=== PATIENT | male | born 1960 | race Caucasian/White ===

== ENCOUNTER 2024-05-26 09:50 | Observation (INO) ==
[2024-05-26 12:25] LABS: BASOPHILS # (AUTO) 0.1 X10^3/uL (0.0-0.1); EOSINOPHILS # (AUTO) 0.1 x10^3/uL (0.0-0.2); HEMATOCRIT 53.5 % (42.0-54.0); HEMOGLOBIN 17.9 g/dL (13.5-18.0); LYMPHOCYTES # (AUTO) 1.5 X10^3/uL (1.3-2.9); LYMPHOCYTES % (AUTO) 26.3 % (21.0-51.0); MEAN CORPUSCULAR HEMOGLOBIN 33.1 pg (27.0-34.0); MEAN CORPUSCULAR HGB CONC 33.4 g/dL (33.0-35.0); MEAN CORPUSCULAR VOLUME 99.1 fL (80.0-100.0); MEAN PLATELET VOLUME 7.6 fL (7.4-11.0); MONOCYTES # (AUTO) 0.4 x10^3/uL (0.3-0.8); MONOCYTES % (AUTO) 6.7 % (0.0-13.0); NEUTROPHILS # (AUTO) 3.7 x10^3/uL (2.2-4.8); PLATELET COUNT 192 X10^3/uL (150.0-450.0); RED CELL DISTRIBUTION WIDTH 14.7 % (11.6-16.5); WHITE BLOOD COUNT 5.8 X10^3/uL (3.6-10.0)
[2024-05-26 12:38] LABS: ALANINE AMINOTRANSFERASE 26 Units/L (12-78); ALBUMIN 3.9 g/dL (3.4-5.0); ALKALINE PHOSPHATASE 147 Units/L (46-116); ASPARTATE AMINO TRANSFERASE 24 Units/L (15-37); BLOOD UREA NITROGEN 13 mg/dL (7-18); CARBON DIOXIDE 27.8 mmol/L (21-32); CHLORIDE 103 mmol/L (98-107); COR NA(FOR HYPERGLY) 142 mmol/L (136-145); GLUCOSE 130 mg/dL (65-99); POTASSIUM 4.4 mmol/L (3.5-5.1); SODIUM 141 mmol/L (136-145); eGFR NON BLACK RACES > 60 (>60)
[2024-05-26] MEDS: NICOTINE PATCH TD SCH (13:17)
[2024-05-26 13:29] VITALS: BMI 28.2
[2024-05-26 14:18] LABS: HEMOGLOBIN A1C 5.8 %
[2024-05-26 14:24] LABS: CHOL/HDL RATIO 2.2 (0.0-5.0); TSH (3RD GENERATION) 0.865 uIU/mL (0.358-3.74)
[2024-05-26] MEDS: PROVENTIL NEB TX 0.083% 2.5MG/ 3ML NEB SCH (15:21)
[2024-05-26] MEDS: ATIVAN INJ 2 MG VIAL IVP ONE (15:22)
--- NOTE | 2024-05-26 16:47 | CT ---
EXAM: CTA AORTA WITH RUNOFF HISTORY: Ischemia bilateral lower exts; evaluate peripheral vascular occlusive disease COMPARISON: None TECHNIQUE: Multiple CT axial images of the abdomen pelvis and lower extremity runoff were obtained before and af ter using IV contrast. 3D reconstructions utilizing axial MIPS imaging was performed and reviewed. D ose reduction techniques including Automated Exposure Control (AEC) and adjustment of mA and kV were utilized. Stenoses are measured using NASCET criteria. FINDINGS: Without contrast: Atherosclerotic calcification is present in the coronary arteries, aorta, and major arterial branches. With contrast: Minimal aortic aneurysm is present measuring 3.0 cm. Fusiform in shape. But there is no dissection or significant stenosis. 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 Superior mesenteric artery is widely patent. But there is also occlusion of the proximal inferior mesenteric artery. Single patent artery to each kidney. Probable moderate left renal artery stenosis. Common iliac external iliac arteries are patent. Both internal iliac arteries are patent. Right lower extremity: Moderate diffuse disease is seen in the femoropopliteal artery. All 3 trifurc ation branches are patent in the proximal calf and extends to the foot. Left lower extremity: Mild diffuse femoropopliteal artery atherosclerotic disease is present. Anteri or tibial artery is occluded, but the posterior tibial and the peroneal artery extends into the foot. Body: Lung bases are clear. No pulmonary emboli in the lower lung branches. Liver, spleen, adrenal glands, and pancreas are unremarkable. Gallbladder appears contracted but there may be edema around the. Recommend correlation with sonogra phy. No renal mass or hydronephrosis. The bowel is not dilated. There is no wall thickening in the bowel or edema around the bowel. Minimally enlarged prostate. Left inguinal hernia contains fat. IMPRESSION: 1. (3.0 cm) abdominal aortic aneurysm 2. Diffuse atherosclerosis with no significant inflow occlusive disease to the lower extremities 3. Three-vessel runoff to the right foot and 2 vessel runoff to the left foot 4. Possible edema around the gallbladder; recommend correlation with sonography THIS IS AN ELECTRONICALLY VERIFIED FINAL REPORT 05/26/2024 4:44 PM - Electronically signed by Kentrell Mercer MD
[2024-05-26] MEDS: OMNIPAQUE 350 mg/mL 50 mL BTL 50 ML ONE (19:12)
[2024-05-26] MEDS: PROVENTIL NEB TX 0.083% 2.5MG/ 3ML ONE (19:12)
[2024-05-26] MEDS: ATIVAN INJ 2 MG VIAL ONE (19:12)
[2024-05-26] MEDS: DUONEB 0.5 MG/3 MG (3 mL) NEB ONE (19:12)
[2024-05-26] MEDS: OMNIPAQUE 350 mg/mL 100 mL BTL 100 ML ONE (19:12)
[2024-05-26] MEDS: PERCOCET TAB 5/325 MG PO PRN (19:50)
[2024-05-26] MEDS: PULMICORT NEB TX 0.5 MG NEB SCH (20:00)
--- NOTE | 2024-05-26 22:31 | DR.CONSULT ---
CONSULT Consultation for Day of: Date: 05/26/24 Chief Complaint Chief Complaint: 64 yo male with significant pain of both legs . Has had significant swelling and discloration of the legs. Pain is all the time at at rest . Past history of significant tobacco use. C/o SOB which has gotten worse. Had cardiac catherization many years ago which is reported by the patient as being normal . Has appointment with Cardiology , Dr. Henry next week. Allergies Allergies Allergy/AdvReac Type Severity Reaction Status Date / Time naproxen Allergy Severe RASH Verified 05/26/24 16:24 History of Present Illness History of Present Illness: as above Past Medical History Past Medical History: Anxiety, COPD and Hypertension Past Surgical History Surgical History: Other (inguinal hernia repair in the past ) Family History Family Medical History: [place] Social History Does patient currently use any type of tobacco product: Yes Type of Tobacco Use: Cigarettes How many years tobacco product used: 50 Does any household member use tobacco: No Alcohol Use: None Drug Use: None Medications Home Medications: naproxen Allergy (Severe, Verified 05/26/24 16:24) see attached medication list RASH Review of Systems Constitutional: See HPI Eyes: No Symptoms Reported ENT: No Symptoms Reported Respiratory: See HPI and Shortness of Breath Cardiovascular: Chest Pain Gastrointestinal: No Symptoms Reported Genitourinary: No Symptoms Reported Musculoskeletal: See HPI Skin: See HPI Neurological: No Symptoms Reported Physical Exam Vital Signs: Vital Signs Temperature 98.2 F Temperature 97.9 F Pulse Rate [Right] 89 Pulse Rate [Right] 75 Pulse Rate 73 Pulse Rate 65 Respiratory Rate 19 Respiratory Rate 19 Respiratory Rate 19 Respiratory Rate 16 Blood Pressure [Left Arm] 109/80 Blood Pressure [Left Arm] 104/73 O2 Sat by Pulse Oximetry 96 O2 Sat by Pulse Oximetry 98 O2 Sat by Pulse Oximetry 98 O2 Sat by Pulse Oximetry 96 Oriented: Normal, Time, Person and Place Eyes: Normal Ear: Normal Nose: Normal Throat: Normal Respiratory: Diminished Throughout Cardiovascular: Normal and Other (significant swelling both legs with hemosiderin depostion both legs , cannot palpate distalm pulses either ankle ) : Normal Auscultation: Bowel Sounds: Normal Palpation: Normal Tenderness: Normal Skin: Other (see above of legs ) Musculoskeletal: Normal Psychiatric: Normal Mood Description: Anxious Affect: Normal Speech Pattern: Clear Plan (1) PVD (peripheral vascular disease): Status: Acute Plan: Will obtain CTA of aorta with b/l LE runoff (2) Edema: Status: Acute Plan: venous insufficiency studies (3) Atypical chest pain: Status: Acute Plan: consult Dr Rhett Henry , cardiology (4) COPD (chronic obstructive pulmonary disease): Status: Acute Qualifiers: COPD type: unspecified COPD Qualified Code(s): J44.9 - Chronic obstructive pulmonary disease, unspecified Plan: home medications (5) Hypertension: Status: None (6) Atherosclerosis of [place] arteries of extremities with rest pain, right leg: Status: Acute Plan: as above (7) Atherosclerosis of [place] arteries of extremities with rest pain, left leg: Status: Acute Plan: above (8) Compression of vein: Status: Acute Plan: venous ninsufficiency studies (9) Venous insufficiency (chronic) (peripheral): Status: Acute Plan: venous insufficiency studies
[2024-05-26] MEDS: ALPRAZOLAM ODT PO PRN (23:02)
[2024-05-27 05:04] LABS: BASOPHILS % (AUTO) 0.5 % (0.2-1.0); EOSINOPHILS # (AUTO) 0.1 x10^3/uL (0.0-0.2); HEMATOCRIT 49.4 % (42.0-54.0); HEMOGLOBIN 16.3 g/dL (13.5-18.0); LYMPHOCYTES % (AUTO) 39.7 % (21.0-51.0); MEAN CORPUSCULAR HEMOGLOBIN 32.8 pg (27.0-34.0); MEAN CORPUSCULAR HGB CONC 32.9 g/dL (33.0-35.0); MEAN CORPUSCULAR VOLUME 99.6 fL (80.0-100.0); MEAN PLATELET VOLUME 8.1 fL (7.4-11.0); MONOCYTES # (AUTO) 0.6 x10^3/uL (0.3-0.8); MONOCYTES % (AUTO) 12.8 % (0.0-13.0); NEUTROPHILS # (AUTO) 2.3 x10^3/uL (2.2-4.8); PLATELET COUNT 173 X10^3/uL (150.0-450.0); RED BLOOD COUNT 4.96 X10^6/uL (4.7-6.0)
[2024-05-27 05:16] LABS: ALANINE AMINOTRANSFERASE 20 Units/L (12-78); ALBUMIN 3.2 g/dL (3.4-5.0); ALKALINE PHOSPHATASE 145 Units/L (46-116); ASPARTATE AMINO TRANSFERASE 19 Units/L (15-37); BLOOD UREA NITROGEN 14 mg/dL (7-18); CALCIUM 8.8 mg/dL (8.5-10.1); CARBON DIOXIDE 30.7 mmol/L (21-32); CHLORIDE 106 mmol/L (98-107); COR CA(FOR HYPOALB) 9.4 mg/dL (8.5-10.1); CREATININE 1.12 mg/dL (0.70-1.30); GLUCOSE 108 mg/dL (65-99); POTASSIUM 4.7 mmol/L (3.5-5.1); SODIUM 143 mmol/L (136-145); TOTAL PROTEIN 6.2 g/dL (6.4-8.2); eGFR NON BLACK RACES > 60 (>60)
--- NOTE | 2024-05-27 06:10 | RAD ---
EXAM:CHEST, 1 VIEWHISTORY:SOB;COMPARISON:None. r.br.br sizeable pleural effusion, or visible pneumothorax. No acute osseous finding.IMPRESSION:Cardiomegaly without acute appearing.THIS IS AN ELECTRONICALLY VERIFIED FINAL [id number]/27/2024 6:06 AM - Electronically signed by Vinayak Arthur MD
[2024-05-27] MEDS: LOTENSIN TAB 10 MG PO SCH (10:35)
--- NOTE | 2024-05-27 11:01 | PCM.PROG ---
Progress Note Progress Note for Day of Date of Exam: 05/27/24 Subjective Subjective: Patient seen at bedside, no acute events overnight. He continues to have pain in both LE. He states redness appears to be the same. He was admitted for concern for b/l LE ischemia. Dr Smith and Dr Henry have been consulted. CTA run off showed diffuse atherosclerosis, no significant stenosis. It also showed 3cm AAA. Patient also had echo done, report pending. He takes Percocet TID prn at home but states that has not been helping. Labs/imaging reviewed: -WBC 5.0 Hgb 16.3 BUN/Cr 14.12 -CTA run off reviewed -CXR: no acute changes Plan: follow recommendations as per vascular and cardio. Follow pending studies. Will increase Percocet to QID prn. Continue home medications. Replace electrolytes as per protocol. Monitor AM labs/imaging. Past Medical Family Social History Allergies: Allergies naproxen Allergy (Severe, Verified 05/26/24 16:24) RASH Stefano-Tyler Reaction Vital Signs and I&O's Vital Signs: Vital Signs Temperature 98.8 F Temperature 97.5 F Pulse Rate [Right] 88 Pulse Rate [Right] 73 Pulse Rate 73 Respiratory Rate 20 Respiratory Rate 18 Respiratory Rate 18 Respiratory Rate 20 Blood Pressure [Left Arm] 163/81 Blood Pressure [Left Arm] 134/84 O2 Sat by Pulse Oximetry 98 O2 Sat by Pulse Oximetry 98 O2 Sat by Pulse Oximetry 97 Intake and Output: Intake & Output 05/24/24 05/25/24 05/26/24 05/27/24 23:59 23:59 23:59 23:59 Intake Total 0 / 0 Balance 0 / 0 Physical Exam Oriented: Normal, Time, Person and Place Eyes: Normal Ear: Normal Nose: Normal Throat: Normal Cardiovascular: Normal and Other (significant swelling both legs with hemosideri n depostion both legs , cannot palpate distalm pulses either ankle ) Auscultation: Bowel Sounds: Normal Palpation: Normal Tenderness: Normal Skin: Other (see above of legs ) Musculoskeletal: Normal Psychiatric: Normal Mood Description: Calm Affect: Normal Speech Pattern: Clear and Appropriate Laboratory and Diagnostics 05/27/24 04:01 05/27/24 04:01 Labs: Laboratory WBC 5.0 X10^3/uL (3.6-10.0) 05/27/24 04:01 RBC 4.96 X10^6/uL (4.7-6.0) 05/27/24 04:01 Hgb 16.3 g/dL (13.5-18.0) 05/27/24 04:01 Hct 49.4 % (42.0-54.0) 05/27/24 04:01 MCV 99.6 fL (80.0-100.0) 05/27/24 04:01 MCH 32.8 pg (27.0-34.0) 05/27/24 04:01 MCHC 32.9 g/dL (33.0-35.0) L 05/27/24 04:01 RDW 15.0 % (11.6-16.5) 05/27/24 04:01 Plt Count 173 X10^3/uL (150.0-450.0) 05/27/24 04:01 MPV 8.1 fL (7.4-11.0) 05/27/24 04:01 Neut % (Auto) 45.0 % (42.0-75.0) 05/27/24 04:01 Lymph % (Auto) 39.7 % (21.0-51.0) 05/27/24 04:01 [place] % (Auto) 12.8 % (0.0-13.0) 05/27/24 04:01 Eos % (Auto) 2.0 % (0.9-2.9) 05/27/24 04:01 Baso % (Auto) 0.5 % (0.2-1.0) 05/27/24 04:01 Neut # (Auto) 2.3 x10^3/uL (2.2-4.8) 05/27/24 04:01 Lymph # (Auto) 2.0 X10^3/uL (1.3-2.9) 05/27/24 04:01 [place] # (Auto) 0.6 x10^3/uL (0.3-0.8) 05/27/24 04:01 Eos # (Auto) 0.1 x10^3/uL (0.0-0.2) 05/27/24 04:01 Baso # (Auto) 0.0 X10^3/uL (0.0-0.1) 05/27/24 04:01 Absolute Nucleated RBC 0.1 /100WBC 05/27/24 04:01 D-Dimer 0.55 ug/ml (0.0-0.57) 05/26/24 12:08 Sodium 143 mmol/L (136-145) 05/27/24 04:01 Corrected Sodium TNP 05/27/24 04:01 Potassium 4.7 mmol/L (3.5-5.1) 05/27/24 04:01 Chloride 106 mmol/L (98-107) 05/27/24 04:01 Carbon Dioxide 30.7 mmol/L (21-32) 05/27/24 04:01 BUN 14 mg/dL (7-18) 05/27/24 04:01 Creatinine 1.12 mg/dL (0.70-1.30) 05/27/24 04:01 Est GFR (MDRD) Af Amer > 60 (>60) 05/27/24 04:01 Est GFR (MDRD) Non-Af > 60 (>60) 05/27/24 04:01 Glucose 108 mg/dL (65-99) H 05/27/24 04:01 Hemoglobin A1c 5.8 % 05/26/24 12:08 Calcium 8.8 mg/dL (8.5-10.1) 05/27/24 04:01 Corrected Calcium 9.4 mg/dL (8.5-10.1) 05/27/24 04:01 Total Bilirubin 0.50 mg/dL (0.2-1.0) 05/27/24 04:01 AST 19 Units/L (15-37) 05/27/24 04:01 ALT 20 Units/L (12-78) 05/27/24 04:01 Alkaline Phosphatase 145 Units/L (46-116) H 05/27/24 04:01 B-Natriuretic Peptide 118 pg/mL (0-79) H 05/26/24 12:08 Total Protein 6.2 g/dL (6.4-8.2) L 05/27/24 04:01 Albumin 3.2 g/dL (3.4-5.0) L 05/27/24 04:01 Globulin 3.0 g/dL (2.5-4.5) 05/27/24 04:01 Albumin/Globulin Ratio 1.1 Ratio (1.1-2.1) 05/27/24 04:01 Triglycerides 74 mg/dL (0-150) 05/26/24 12:08 Cholesterol 151 mg/dL (0-200) 05/26/24 12:08 LDL Cholesterol, Calc 68 mg/dL (0-100) 05/26/24 12:08 HDL Cholesterol 68 mg/dL (40-60) H 05/26/24 12:08 Cholesterol/HDL Ratio 2.2 (0.0-5.0) 05/26/24 12:08 TSH 3rd Generation 0.865 uIU/mL (0.358-3.74) 05/26/24 12:08 Plan (1) PVD (peripheral vascular disease): Status: Acute (2) Edema: Status: Acute Qualifiers: Edema type: unspecified Qualified Code(s): R60.9 - Edema, unspecified (3) COPD (chronic obstructive pulmonary disease): Status: Chronic Qualifiers: COPD type: unspecified COPD Qualified Code(s): J44.9 - Chronic obstructive pulmonary disease, unspecified (4) Hypertension: Status: Chronic Qualifiers: Hypertension type: primary hypertension Qualified Code(s): I10 - Essential (primary) hypertension (5) Atherosclerosis of [place] arteries of extremities with rest pain, right leg: Status: Acute (6) Atherosclerosis of [place] arteries of extremities with rest pain, left leg: Status: Acute (7) Compression of vein: Status: Acute (8) Venous insufficiency (chronic) (peripheral): Status: Acute
[2024-05-27] MEDS: PERCOCET TAB 5/325 MG PO SCH (11:56)
[2024-05-27] MEDS: ROBAXIN PO PRN (20:06)
--- NOTE | 2024-05-27 23:54 | NOTE.SOAP ---
Soap Note Note for Day of Date of Exam: 05/27/24 Subjective Data Subjective Data: Patient not improved . Cardiology has seen patient Objective Data Temperature: 97.8 F Pulse Rate: 94 Respiratory Rate: 20 Blood Pressure: 107/78 O2 Sat by Pulse Oximetry: 97 Objective Data: CTA, no significant arterial stenosis either leg Assessment Assessment: Probable venous insufficiency with b/l iliac vein compression Plan Plan: Obtain venous insufficiency testing and await cardiology consult. Tentatively schedule for iliac vein IVUS and stenting on Wednesday
[2024-05-28 04:49] LABS: ALANINE AMINOTRANSFERASE 21 Units/L (12-78); ALBUMIN 3.3 g/dL (3.4-5.0); ALKALINE PHOSPHATASE 146 Units/L (46-116); ASPARTATE AMINO TRANSFERASE 20 Units/L (15-37); BLOOD UREA NITROGEN 16 mg/dL (7-18); CALCIUM 8.6 mg/dL (8.5-10.1); CARBON DIOXIDE 30.1 mmol/L (21-32); CHLORIDE 106 mmol/L (98-107); COR CA(FOR HYPOALB) 9.2 mg/dL (8.5-10.1); CREATININE 1.21 mg/dL (0.70-1.30); GLUCOSE 110 mg/dL (65-99); POTASSIUM 4.5 mmol/L (3.5-5.1); SODIUM 142 mmol/L (136-145); TOTAL PROTEIN 6.2 g/dL (6.4-8.2); eGFR NON BLACK RACES > 60 (>60)
[2024-05-28 04:56] LABS: BASOPHILS % (AUTO) 0.8 % (0.2-1.0); EOSINOPHILS # (AUTO) 0.1 x10^3/uL (0.0-0.2); EOSINOPHILS % (AUTO) 1.9 % (0.9-2.9); HEMATOCRIT 49.2 % (42.0-54.0); HEMOGLOBIN 16.2 g/dL (13.5-18.0); LYMPHOCYTES % (AUTO) 34.9 % (21.0-51.0); MEAN CORPUSCULAR HEMOGLOBIN 32.7 pg (27.0-34.0); MEAN CORPUSCULAR HGB CONC 32.8 g/dL (33.0-35.0); MEAN CORPUSCULAR VOLUME 99.7 fL (80.0-100.0); MEAN PLATELET VOLUME 8.2 fL (7.4-11.0); MONOCYTES # (AUTO) 0.6 x10^3/uL (0.3-0.8); MONOCYTES % (AUTO) 10.6 % (0.0-13.0); NEUTROPHILS % (AUTO) 51.8 % (42.0-75.0); PLATELET COUNT 200 X10^3/uL (150.0-450.0); RED BLOOD COUNT 4.94 X10^6/uL (4.7-6.0); RED CELL DISTRIBUTION WIDTH 14.8 % (11.6-16.5); WHITE BLOOD COUNT 5.8 X10^3/uL (3.6-10.0)
[2024-05-28] MEDS: PERCOCET TAB 5/325 MG ONE (05:18)
[2024-05-28] MEDS: PERCOCET TAB 5/325 MG PO PRN (10:55)
--- NOTE | 2024-05-28 10:58 | PCM.PROG ---
Progress Note Progress Note for Day of Date of Exam: 05/28/24 Subjective Subjective: Patient seen at bedside, no acute events overnight. He is complaining of b/l LE pain. He was seen by Dr Smith yesterday. He was admitted for concern for b/l LE ischemia. It seems to be related to venous insufficiency. Waiting on venous studies and cardio consult. Echo pending. Labs/imaging reviewed: -WBC 5.8 Hgb 16.2 BUN/Cr 17/08. -CTA run off reviewed -CXR: no acute changes Plan: follow recommendations as per vascular and cardio. Tentatively scheduled for IVUS and stenting on 05/30/24. Follow pending studies. Continue Percocet to QID prn. Add Demrol prn. Continue home medications. Replace electrolytes as per protocol. Monitor AM labs/imaging. Past Medical Family Social History Allergies: Allergies naproxen Allergy (Severe, Verified 05/26/24 16:24) RASH Stefano-Tyler Reaction Vital Signs and I&O's Vital Signs: Vital Signs Temperature 97.7 F Temperature 97.8 F Pulse Rate [Right] 85 Pulse Rate [Right] 85 Pulse Rate 87 Respiratory Rate 21 Respiratory Rate 18 Respiratory Rate 20 Blood Pressure [Left Arm] 133/86 Blood Pressure [Left Arm] 123/65 O2 Sat by Pulse Oximetry 97 O2 Sat by Pulse Oximetry 96 O2 Sat by Pulse Oximetry 96 Intake and Output: Intake & Output 05/25/24 05/26/24 05/27/24 05/28/24 23:59 23:59 23:59 23:59 Intake Total 0 / 0 Balance 0 / 0 Physical Exam Oriented: Normal, Time, Person and Place Eyes: Normal Ear: Normal Nose: Normal Throat: Normal Cardiovascular: Normal and Other (significant swelling both legs with hemosiderin depostion both legs , cannot palpate distal pulses either ankle ) Auscultation: Bowel Sounds: Normal Palpation: Normal Tenderness: Normal Skin: Other (see above of legs ) Musculoskeletal: Normal Psychiatric: Normal Mood Description: Calm Affect: Normal Speech Pattern: Clear and Appropriate Laboratory and Diagnostics 05/28/24 04:20 05/28/24 04:20 Labs: Laboratory WBC 5.8 X10^3/uL (3.6-10.0) 05/28/24 04:20 RBC 4.94 X10^6/uL (4.7-6.0) 05/28/24 04:20 Hgb 16.2 g/dL (13.5-18.0) 05/28/24 04:20 Hct 49.2 % (42.0-54.0) 05/28/24 04:20 MCV 99.7 fL (80.0-100.0) 05/28/24 04:20 MCH 32.7 pg (27.0-34.0) 05/28/24 04:20 MCHC 32.8 g/dL (33.0-35.0) L 05/28/24 04:20 RDW 14.8 % (11.6-16.5) 05/28/24 04:20 Plt Count 200 X10^3/uL (150.0-450.0) 05/28/24 04:20 MPV 8.2 fL (7.4-11.0) 05/28/24 04:20 Neut % (Auto) 51.8 % (42.0-75.0) 05/28/24 04:20 Lymph % (Auto) 34.9 % (21.0-51.0) 05/28/24 04:20 [place] % (Auto) 10.6 % (0.0-13.0) 05/28/24 04:20 Eos % (Auto) 1.9 % (0.9-2.9) 05/28/24 04:20 Baso % (Auto) 0.8 % (0.2-1.0) 05/28/24 04:20 Neut # (Auto) 3.0 x10^3/uL (2.2-4.8) 05/28/24 04:20 Lymph # (Auto) 2.0 X10^3/uL (1.3-2.9) 05/28/24 04:20 [place] # (Auto) 0.6 x10^3/uL (0.3-0.8) 05/28/24 04:20 Eos # (Auto) 0.1 x10^3/uL (0.0-0.2) 05/28/24 04:20 Baso # (Auto) 0.0 X10^3/uL (0.0-0.1) 05/28/24 04:20 Absolute Nucleated RBC 0.2 /100WBC 05/28/24 04:20 D-Dimer 0.55 ug/ml (0.0-0.57) 05/26/24 12:08 Sodium 142 mmol/L (136-145) 05/28/24 04:20 Corrected Sodium TNP 05/28/24 04:20 Potassium 4.5 mmol/L (3.5-5.1) 05/28/24 04:20 Chloride 106 mmol/L (98-107) 05/28/24 04:20 Carbon Dioxide 30.1 mmol/L (21-32) 05/28/24 04:20 BUN 16 mg/dL (7-18) 05/28/24 04:20 Creatinine 1.21 mg/dL (0.70-1.30) 05/28/24 04:20 Est GFR (MDRD) Af Amer > 60 (>60) 05/28/24 04:20 Est GFR (MDRD) Non-Af > 60 (>60) 05/28/24 04:20 Glucose 110 mg/dL (65-99) H 05/28/24 04:20 Hemoglobin A1c 5.8 % 05/26/24 12:08 Calcium 8.6 mg/dL (8.5-10.1) 05/28/24 04:20 Corrected Calcium 9.2 mg/dL (8.5-10.1) 05/28/24 04:20 Total Bilirubin 0.50 mg/dL (0.2-1.0) 05/28/24 04:20 AST 20 Units/L (15-37) 05/28/24 04:20 ALT 21 Units/L (12-78) 05/28/24 04:20 Alkaline Phosphatase 146 Units/L (46-116) H 05/28/24 04:20 B-Natriuretic Peptide 118 pg/mL (0-79) H 05/26/24 12:08 Total Protein 6.2 g/dL (6.4-8.2) L 05/28/24 04:20 Albumin 3.3 g/dL (3.4-5.0) L 05/28/24 04:20 Globulin 2.9 g/dL (2.5-4.5) 05/28/24 04:20 Albumin/Globulin Ratio 1.1 Ratio (1.1-2.1) 05/28/24 04:20 Triglycerides 74 mg/dL (0-150) 05/26/24 12:08 Cholesterol 151 mg/dL (0-200) 05/26/24 12:08 LDL Cholesterol, Calc 68 mg/dL (0-100) 05/26/24 12:08 HDL Cholesterol 68 mg/dL (40-60) H 05/26/24 12:08 Cholesterol/HDL Ratio 2.2 (0.0-5.0) 05/26/24 12:08 TSH 3rd Generation 0.865 uIU/mL (0.358-3.74) 05/26/24 12:08 Plan (1) PVD (peripheral vascular disease): Status: Acute (2) Edema: Status: Acute Qualifiers: Edema type: unspecified Qualified Code(s): R60.9 - Edema, unspecified (3) COPD (chronic obstructive pulmonary disease): Status: Chronic Qualifiers: COPD type: unspecified COPD Qualified Code(s): J44.9 - Chronic obstructive pulmonary disease, unspecified (4) Hypertension: Status: Chronic Qualifiers: Hypertension type: primary hypertension Qualified Code(s): I10 - Essential (primary) hypertension (5) Atherosclerosis of [place] arteries of extremities with rest pain, right leg: Status: Acute (6) Atherosclerosis of [place] arteries of extremities with rest pain, left leg: Status: Acute (7) Compression of vein: Status: Acute (8) Venous insufficiency (chronic) (peripheral): Status: Acute
[2024-05-28] MEDS: DEMEROL INJ IVP PRN (13:14)
--- NOTE | 2024-05-28 14:23 | NOTE.SOAP ---
Soap Note Note for Day of Date of Exam: 05/28/24 Subjective Data Subjective Data: No change , Pain described as burning pain Objective Data Temperature: 98.3 F Pulse Rate: 93 Respiratory Rate: 21 Blood Pressure: 117/89 O2 Sat by Pulse Oximetry: 97 Objective Data: On 2 liters oxygen. biphasic PT arteries b/l. Assessment Assessment: Venous indufficiency both legs Plan Plan: await cardiology consult , order venous insufficiency
[2024-05-28] MEDS: PULMICORT NEB TX 0.5 MG NEB ONE (19:10)
[2024-05-28] MEDS: PROVENTIL NEB TX 0.083% 2.5MG/ 3ML ONE (19:10)
[2024-05-29 04:53] LABS: MEAN CORPUSCULAR HEMOGLOBIN 32.9 pg (27.0-34.0); RED CELL DISTRIBUTION WIDTH 14.9 % (11.6-16.5)
[2024-05-29 04:59] LABS: BASOPHILS # (AUTO) 0.1 X10^3/uL (0.0-0.1); BASOPHILS % (AUTO) 0.9 % (0.2-1.0); EOSINOPHILS # (AUTO) 0.1 x10^3/uL (0.0-0.2); EOSINOPHILS % (AUTO) 1.5 % (0.9-2.9); HEMATOCRIT 48.3 % (42.0-54.0); HEMOGLOBIN 15.9 g/dL (13.5-18.0); LYMPHOCYTES # (AUTO) 1.9 X10^3/uL (1.3-2.9); MEAN CORPUSCULAR VOLUME 99.9 fL (80.0-100.0); MONOCYTES # (AUTO) 0.7 x10^3/uL (0.3-0.8); MONOCYTES % (AUTO) 11.7 % (0.0-13.0); NEUTROPHILS # (AUTO) 3.5 x10^3/uL (2.2-4.8); NEUTROPHILS % (AUTO) 55.9 % (42.0-75.0); PLATELET COUNT 178 X10^3/uL (150.0-450.0); RED BLOOD COUNT 4.83 X10^6/uL (4.7-6.0); WHITE BLOOD COUNT 6.2 X10^3/uL (3.6-10.0)
[2024-05-29 05:09] LABS: ALANINE AMINOTRANSFERASE 22 Units/L (12-78); ALBUMIN 3.3 g/dL (3.4-5.0); ALKALINE PHOSPHATASE 144 Units/L (46-116); ASPARTATE AMINO TRANSFERASE 21 Units/L (15-37); BLOOD UREA NITROGEN 17 mg/dL (7-18); CALCIUM 8.6 mg/dL (8.5-10.1); CHLORIDE 104 mmol/L (98-107); COR CA(FOR HYPOALB) 9.2 mg/dL (8.5-10.1); CREATININE 1.08 mg/dL (0.70-1.30); GLUCOSE 100 mg/dL (65-99); POTASSIUM 4.5 mmol/L (3.5-5.1); SODIUM 140 mmol/L (136-145); TOTAL PROTEIN 6.2 g/dL (6.4-8.2); eGFR NON BLACK RACES > 60 (>60)
--- NOTE | 2024-05-29 06:22 | EKG ---
Test Reason : preop Blood Pressure : */* mmHG Vent. Rate : 97 BPM Atrial Rate : * BPM P-R Int : * ms QRS Dur : 90 ms QT Int : 376 ms P-R-T Axes : * -76 40 degrees QTc Int : 477 ms Atrial fibrillation Left axis deviation Pulmonary disease pattern Abnormal ECG No previous ECGs available Confirmed by Uziel Henry MD ([id number]) on 05/29/2024 7:38:15 AM Referred By: Confirmed By: Uziel Henry MD
--- NOTE | 2024-05-29 08:17 | DR.CONSULT ---
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 Past Medical History Past Medical History: Anxiety, COPD and Hypertension Past Surgical History Surgical History: Other (inguinal hernia repair in the past ) Family History Family Medical History: [place] Social History Does patient currently use any type of tobacco product: Yes Type of Tobacco Use: Cigarettes How many years tobacco product used: 50 Does any household member use tobacco: No Alcohol Use: None Drug Use: None Medications Home Medications: naproxen Allergy (Severe, Verified 05/26/24 16:24) RASH Physical Exam Vital Signs: Vital Signs Temperature 98.2 F Temperature 97.8 F Temperature 97.8 F Pulse Rate [Right] 90 Pulse Rate [Right] 98 Pulse Rate [Right] 98 Respiratory Rate 21 Respiratory Rate 18 Respiratory Rate 18 Respiratory Rate 20 Respiratory Rate 19 Respiratory Rate 19 Respiratory Rate 20 Respiratory Rate 20 Blood Pressure [Left Arm] 121/82 Blood Pressure [Left Arm] 120/79 Blood Pressure [Left Arm] 120/79 O2 Sat by Pulse Oximetry 98 O2 Sat by Pulse Oximetry 97 O2 Sat by Pulse Oximetry 97 alert ox3 nad no carotid bruits clear lungs irreg 1 plus edema/pulses palp labs to note: hct 48 ddimer nornal, bun/cr 17/ k 4.5 alb 3.3 hdl/ldl 68 Plan (1) Edema: Status: Acute Qualifiers: Edema type: unspecified Qualified Code(s): R60.9 - Edema, unspecified Plan: diuresis (2) COPD (chronic obstructive pulmonary disease): Status: Chronic Qualifiers: COPD type: unspecified COPD Qualified Code(s): J44.9 - Chronic obstructive pulmonary disease, unspecified (3) Hypertension: Status: Chronic Qualifiers: Hypertension type: primary hypertension Qualified Code(s): I10 - Essential (primary) hypertension (4) Atrial fibrillation: Status: Acute Narrative Support Text: add doac but needs cath first as well as BB for rate control (5) Cardiomyopathy: Status: Acute Narrative Support Text: focal wall motion abnormalitites on echo- concerning for multivessel cad- needs cath- add asa/bb- statin if cad- no doac yet as cath needs to be done first
[2024-05-29] MEDS: COREG TAB 3.125 MG PO SCH (08:53)
[2024-05-29] MEDS: ASPIRIN 81 MG CHEWTAB PO SCH (08:54)
[2024-05-29] MEDS: LASIX PO SCH (08:54)
[2024-05-29 10:04] VITALS: O2SAT 97
--- NOTE | 2024-05-29 10:32 | DR.H&P ---
H&P History & Physical for Day of: H&P Date: 05/26/24 Chief Complaint Chief Complaint: LE edema, redness, SOB History of Present Illness History of Present Illness: Mr Short is a 64y/o male with a PMH of chronic pain, anxiety, COPD, HTN presented with worsening LE edema, discoloration and SOB. His symptoms have been present for a few weeks. He denies chest pain. Patient reports having leg pain at rest and with exertion. He was admitted due to concern for LE ischemia. Labs/imaging reviewed: Plan: consult Dr Smith, CTA-run off ordered. Consult cardiology. Echo ordered. Continue telemetry. Wean O2 as tolerated. Continue nebs. Resume home medications. Continue pain control. Replace electrolytes as per protocol. Monit or AM labs/imaging. Past Medical History Past Medical History: Anxiety, COPD and Hypertension Past Surgical History Surgical History: Other (inguinal hernia repair in the past ) Family History Family Medical History: [place] Social History Does patient currently use any type of tobacco product: Yes Type of Tobacco Use: Cigarettes How many years tobacco product used: 50 Does any household member use tobacco: No Alcohol Use: None Drug Use: None Allergies Allergies Allergy/AdvReac Type Severity Reaction Status Date / Time naproxen Allergy Severe RASH Verified 05/26/24 16:24 Labs 05/29/24 04:08 05/29/24 04:08 Labs: Laboratory WBC 6.2 X10^3/uL (3.6-10.0) 05/29/24 04:08 RBC 4.83 X10^6/uL (4.7-6.0) 05/29/24 04:08 Hgb 15.9 g/dL (13.5-18.0) 05/29/24 04:08 Hct 48.3 % (42.0-54.0) 05/29/24 04:08 MCV 99.9 fL (80.0-100.0) 05/29/24 04:08 MCH 32.9 pg (27.0-34.0) 05/29/24 04:08 MCHC 33.0 g/dL (33.0-35.0) 05/29/24 04:08 RDW 14.9 % (11.6-16.5) 05/29/24 04:08 Plt Count 178 X10^3/uL (150.0-450.0) 05/29/24 04:08 MPV 8.0 fL (7.4-11.0) 05/29/24 04:08 Neut % (Auto) 55.9 % (42.0-75.0) 05/29/24 04:08 Lymph % (Auto) 30.0 % (21.0-51.0) 05/29/24 04:08 [place] % (Auto) 11.7 % (0.0-13.0) 05/29/24 04:08 Eos % (Auto) 1.5 % (0.9-2.9) 05/29/24 04:08 Baso % (Auto) 0.9 % (0.2-1.0) 05/29/24 04:08 Neut # (Auto) 3.5 x10^3/uL (2.2-4.8) 05/29/24 04:08 Lymph # (Auto) 1.9 X10^3/uL (1.3-2.9) 05/29/24 04:08 [place] # (Auto) 0.7 x10^3/uL (0.3-0.8) 05/29/24 04:08 Eos # (Auto) 0.1 x10^3/uL (0.0-0.2) 05/29/24 04:08 Baso # (Auto) 0.1 X10^3/uL (0.0-0.1) 05/29/24 04:08 Absolute Nucleated RBC 0.1 /100WBC 05/29/24 04:08 D-Dimer 0.55 ug/ml (0.0-0.57) 05/26/24 12:08 Sodium 140 mmol/L (136-145) 05/29/24 04:08 Corrected Sodium TNP 05/29/24 04:08 Potassium 4.5 mmol/L (3.5-5.1) 05/29/24 04:08 Chloride 104 mmol/L (98-107) 05/29/24 04:08 Carbon Dioxide 29.0 mmol/L (21-32) 05/29/24 04:08 BUN 17 mg/dL (7-18) 05/29/24 04:08 Creatinine 1.08 mg/dL (0.70-1.30) 05/29/24 04:08 Est GFR (MDRD) Af Amer > 60 (>60) 05/29/24 04:08 Est GFR (MDRD) Non-Af > 60 (>60) 05/29/24 04:08 Glucose 100 mg/dL (65-99) H 05/29/24 04:08 Hemoglobin A1c 5.8 % 05/26/24 12:08 Calcium 8.6 mg/dL (8.5-10.1) 05/29/24 04:08 Corrected Calcium 9.2 mg/dL (8.5-10.1) 05/29/24 04:08 Total Bilirubin 0.50 mg/dL (0.2-1.0) 05/29/24 04:08 AST 21 Units/L (15-37) 05/29/24 04:08 ALT 22 Units/L (12-78) 05/29/24 04:08 Alkaline Phosphatase 144 Units/L (46-116) H 05/29/24 04:08 B-Natriuretic Peptide 118 pg/mL (0-79) H 05/26/24 12:08 Total Protein 6.2 g/dL (6.4-8.2) L 05/29/24 04:08 Albumin 3.3 g/dL (3.4-5.0) L 05/29/24 04:08 Globulin 2.9 g/dL (2.5-4.5) 05/29/24 04:08 Albumin/Globulin Ratio 1.1 Ratio (1.1-2.1) 05/29/24 04:08 Triglycerides 74 mg/dL (0-150) 05/26/24 12:08 Cholesterol 151 mg/dL (0-200) 05/26/24 12:08 LDL Cholesterol, Calc 68 mg/dL (0-100) 05/26/24 12:08 HDL Cholesterol 68 mg/dL (40-60) H 05/26/24 12:08 Cholesterol/HDL Ratio 2.2 (0.0-5.0) 05/26/24 12:08 TSH 3rd Generation 0.865 uIU/mL (0.358-3.74) 05/26/24 12:08 Review of Systems Constitutional: See HPI Eyes: No Symptoms Reported ENT: No Symptoms Reported Respiratory: See HPI and Shortness of Breath Cardiovascular: Edema Gastrointestinal: No Symptoms Reported Genitourinary: No Symptoms Reported Musculoskeletal: See HPI Skin: See HPI Neurological: No Symptoms Reported Physical Exam Vital Signs: Vital Signs Temperature 98.2 F Temperature 97.8 F Temperature 97.8 F Pulse Rate [Right] 90 Pulse Rate [Right] 98 Pulse Rate [Right] 98 Pulse Rate 72 Respiratory Rate 21 Respiratory Rate 21 Respiratory Rate 18 Respiratory Rate 18 Respiratory Rate 20 Respiratory Rate 19 Respiratory Rate 19 Respiratory Rate 20 Blood Pressure [Left Arm] 121/82 Blood Pressure [Left Arm] 120/79 Blood Pressure [Left Arm] 120/79 O2 Sat by Pulse Oximetry 97 O2 Sat by Pulse Oximetry 98 O2 Sat by Pulse Oximetry 97 O2 Sat by Pulse Oximetry 97 Oriented: Normal, Time, Person and Place Respiratory: Diminished Throughout Cardiovascular: Normal and Edema Auscultation: Bowel Sounds: Normal Palpation: Normal Tenderness: Normal Skin: Tender and Other (B/L LE discoloration, erythema ) Musculoskeletal: Leg Psychiatric: Normal Mood Description: Calm Affect: Normal Speech Pattern: Clear and Appropriate Assessment/Plan (1) Edema: Qualifiers: Edema type: unspecified Qualified Code(s): R60.9 - Edema, unspecified Status: Acute (2) COPD (chronic obstructive pulmonary disease): Qualifiers: COPD type: unspecified COPD Qualified Code(s): J44.9 - Chronic obstructive pulmonary disease, unspecified Status: Chronic (3) Hypertension: Qualifiers: Hypertension type: primary hypertension Qualified Code(s): I10 - Essential (primary) hypertension Status: Chronic (4) Venous insufficiency (chronic) (peripheral): Status: Acute (5) PVD (peripheral vascular disease): Status: Acute Review H&P Reviewed: Yes Patient was examined?: Yes
--- NOTE | 2024-05-29 11:18 | NOTE.SOAP ---
Soap Note Note for Day of Date of Exam: 05/29/24 Subjective Data Subjective Data: PatieNR stable4 with still significant swelling of LE , Appreciate input form Dr Rhett Henry, EF=40-40% with a-fib and wall motion abnormality and probable significant CAD Objective Data Temperature: 98.2 F Respiratory Rate: 21 Objective Data: as abov e Assessment Assessment: Will need urgent cardiac cath prior to any intervention of the legs Plan Plan: As above
[2024-05-29] MEDS: NS 1,000 ML IV 1,000 ML IV SCH (11:45)
[2024-05-29 12:26] VITALS: BP 99/61; PULSE 87; RESP 20; TEMP 98.1
--- NOTE | 2024-06-01 08:45 | W.DIS.FURT ---
Summary of Discharge Discharge Summary of Date Date of Exam: 05/29/24 Admission Date Date of Admission: 05/26/24 Admission Diagnosis Hospital Course: Mr Short is a 64y/o male with a PMH of chronic pain, anxiety, COPD, HTN presented with worsening LE edema, discoloration and SOB. His symptoms have been present for a few weeks. He denies chest pain. Patient reports having leg pain at rest and with exertion. He was admitted due to concern for LE ischemia. CTA runoff did not show any significant stenosis. Vascular and cardiology were consulted. Patient underwent echocardiogram which did show reduced ejection fraction 35 to 40% with focal wall motion abnormalities. Patient will need a left heart cath for evaluation of multivessel disease. As per vascular, patient likely has venous insufficiency and will need outpatient follow-up. He was transferred to [facility] for heart cath and further management. Patient was stable for transfer. Vital Signs: Vital Signs (72 hours) 05/27/24 23:54 05/28/24 14:23 05/26/24 12:00 Temperature 97.8 F 98.3 F 97.8 F Pulse Rate 94 H 93 H Pulse Rate [Right] 77 Respiratory Rate 20 21 17 Blood Pressure 107/78 117/89 Blood Pressure [Left Arm] 101/71 O2 Sat by Pulse Oximetry 97 97 96 Oxygen Delivery Method Room Air Oxygen Flow Rate FIO2% 05/26/24 11:38 05/26/24 15:22 05/26/24 16:00 Temperature 97.9 F Pulse Rate 65 Pulse Rate [Right] 75 Respiratory Rate 16 Blood Pressure Blood Pressure [Left Arm] 104/73 O2 Sat by Pulse Oximetry 96 98 Oxygen Delivery Method Room Air Room Air Oxygen Flow Rate FIO2% 05/26/24 19:43 05/26/24 19:50 05/26/24 20:00 Temperature 98.2 F Pulse Rate Pulse Rate [Right] 89 Respiratory Rate 19 19 Blood Pressure Blood Pressure [Left Arm] 109/80 O2 Sat by Pulse Oximetry 98 Oxygen Delivery Method Room Air Nasal Cannula Oxygen Flow Rate 2 FIO2% 28 05/26/24 20:00 05/26/24 19:00 05/26/24 20:50 Temperature Pulse Rate 73 Pulse Rate [Right] Respiratory Rate 19 Blood Pressure Blood Pressure [Left Arm] O2 Sat by Pulse Oximetry 96 Oxygen Delivery Method Nasal Cannula Oxygen Flow Rate 2 FIO2% 05/27/24 00:00 05/27/24 04:23 05/27/24 04:00 Temperature 98.1 F 97.5 F L Pulse Rate Pulse Rate [Right] 77 73 Respiratory Rate 18 18 20 Blood Pressure Blood Pressure [Left Arm] 100/70 134/84 O2 Sat by Pulse Oximetry 98 97 Oxygen Delivery Method Room Air Room Air Oxygen Flow Rate FIO2% 05/27/24 05:23 05/27/24 07:00 05/27/24 07:53 Temperature 98.8 F Pulse Rate Pulse Rate [Right] 88 Respiratory Rate 18 20 Blood Pressure Blood Pressure [Left Arm] 163/81 O2 Sat by Pulse Oximetry 98 Oxygen Delivery Method Nasal Cannula Nasal Cannula Oxygen Flow Rate 2 2 FIO2% 05/27/24 08:23 05/27/24 08:23 05/27/24 11:56 Temperature Pulse Rate 73 Pulse Rate [Right] Respiratory Rate 20 Blood Pressure Blood Pressure [Left Arm] O2 Sat by Pulse Oximetry 98 Oxygen Delivery Method Nasal Cannula Oxygen Flow Rate 2 FIO2% 28 05/27/24 17:19 05/27/24 12:00 05/27/24 12:56 Temperature 98.6 F Pulse Rate Pulse Rate [Right] 92 H Respiratory Rate 20 20 20 Blood Pressure Blood Pressure [Left Arm] 118/84 O2 Sat by Pulse Oximetry 97 Oxygen Delivery Method Nasal Cannula Oxygen Flow Rate 2 FIO2% 05/27/24 08:00 05/27/24 16:00 05/27/24 19:00 Temperature 98.0 F Pulse Rate Pulse Rate [Right] 89 Respiratory Rate 20 Blood Pressure Blood Pressure [Left Arm] 122/78 O2 Sat by Pulse Oximetry 98 Oxygen Delivery Method Nasal Cannula Nasal Cannula Nasal Cannula Oxygen Flow Rate 2 2 2 FIO2% 28 05/27/24 19:41 05/27/24 20:03 05/27/24 20:03 Temperature 97.8 F Pulse Rate 82 Pulse Rate [Right] 85 Respiratory Rate 20 Blood Pressure Blood Pressure [Left Arm] 163/83 O2 Sat by Pulse Oximetry 97 95 Oxygen Delivery Method Nasal Cannula Nasal Cannula Oxygen Flow Rate 2 2 FIO2% 28 05/27/24 20:06 05/27/24 21:06 05/27/24 23:00 Temperature 97.8 F Pulse Rate Pulse Rate [Right] 94 H Respiratory Rate 19 18 20 Blood Pressure Blood Pressure [Left Arm] 107/78 O2 Sat by Pulse Oximetry 97 Oxygen Delivery Method Nasal Cannula Oxygen Flow Rate 2 FIO2% 10/27/24 04:00 05/28/24 05:09 05/28/24 08:00 Temperature 97.8 F 97.7 F Pulse Rate Pulse Rate [Right] 85 85 Respiratory Rate 20 18 21 Blood Pressure Blood Pressure [Left Arm] 123/65 133/86 O2 Sat by Pulse Oximetry 96 96 Oxygen Delivery Method Nasal Cannula Nasal Cannula Oxygen Flow Rate 2 2 FIO2% 05/28/24 10:55 05/28/24 13:14 05/28/24 17:22 Temperature Pulse Rate Pulse Rate [Right] Respiratory Rate 21 21 21 Blood Pressure Blood Pressure [Left Arm] O2 Sat by Pulse Oximetry Oxygen Delivery Method Oxygen Flow Rate FIO2% 05/28/24 09:11 05/28/24 09:12 05/28/24 07:00 Temperature Pulse Rate 87 Pulse Rate [Right] Respiratory Rate Blood Pressure Blood Pressure [Left Arm] O2 Sat by Pulse Oximetry 97 Oxygen Delivery Method Nasal Cannula Nasal Cannula Oxygen Flow Rate 2 2 FIO2% 28 05/28/24 12:00 05/28/24 11:55 05/28/24 13:44 Temperature 98.3 F Pulse Rate Pulse Rate [Right] 93 H Respiratory Rate 21 21 21 Blood Pressure Blood Pressure [Left Arm] 117/89 O2 Sat by Pulse Oximetry 97 Oxygen Delivery Method Nasal Cannula Oxygen Flow Rate 2 FIO2% 05/28/24 16:00 05/28/24 18:22 05/28/24 19:29 Temperature 97.6 F 97.9 F Pulse Rate Pulse Rate [Right] 92 H 75 Respiratory Rate 21 21 22 Blood Pressure Blood Pressure [Left Arm] 131/77 149/80 O2 Sat by Pulse Oximetry 96 96 Oxygen Delivery Method Nasal Cannula Nasal Cannula Oxygen Flow Rate 2 2 FIO2% 05/28/24 19:00 05/28/24 20:00 05/28/24 20:00 Temperature Pulse Rate 74 Pulse Rate [Right] Respiratory Rate Blood Pressure Blood Pressure [Left Arm] O2 Sat by Pulse Oximetry 94 L Oxygen Delivery Method Nasal Cannula Nasal Cannula Oxygen Flow Rate 2 2 FIO2% 28 05/28/24 21:34 05/28/24 22:04 05/28/24 23:45 Temperature 97.8 F Pulse Rate Pulse Rate [Right] 95 H Respiratory Rate 22 20 20 Blood Pressure Blood Pressure [Left Arm] 142/77 O2 Sat by Pulse Oximetry 97 Oxygen Delivery Method Nasal Cannula Oxygen Flow Rate 2 FIO2% 05/28/24 23:57 05/29/24 00:57 05/29/24 03:45 Temperature Pulse Rate Pulse Rate [Right] Respiratory Rate 20 20 20 Blood Pressure Blood Pressure [Left Arm] O2 Sat by Pulse Oximetry Oxygen Delivery Method Oxygen Flow Rate FIO2% 05/29/24 04:00 05/29/24 04:00 05/29/24 04:15 Temperature 97.8 F 97.8 F Pulse Rate Pulse Rate [Right] 98 H 98 H Respiratory Rate 19 19 20 Blood Pressure Blood Pressure [Left Arm] 120/79 120/79 O2 Sat by Pulse Oximetry 97 97 Oxygen Delivery Method Nasal Cannula Nasal Cannula Oxygen Flow Rate 2 2 FIO2% 05/29/24 05:55 05/29/24 06:06 05/29/24 06:55 Temperature Pulse Rate Pulse Rate [Right] Respiratory Rate 18 18 Blood Pressure Blood Pressure [Left Arm] O2 Sat by Pulse Oximetry Oxygen Delivery Method Nasal Cannula Oxygen Flow Rate 2 FIO2% 28 05/29/24 08:00 05/29/24 07:00 05/29/24 08:23 Temperature 98.2 F Pulse Rate Pulse Rate [Right] 90 Respiratory Rate 21 Blood Pressure Blood Pressure [Left Arm] 121/82 O2 Sat by Pulse Oximetry 98 Oxygen Delivery Method Nasal Cannula Nasal Cannula Nasal Cannula Oxygen Flow Rate 2 2 2 FIO2% 28 05/29/24 08:23 05/29/24 10:11 Temperature Pulse Rate 72 Pulse Rate [Right] Respiratory Rate 21 Blood Pressure Blood Pressure [Left Arm] O2 Sat by Pulse Oximetry 97 Oxygen Delivery Method Oxygen Flow Rate FIO2% Labs: Laboratory Last Values WBC 6.2 X10^3/uL (3.6-10.0) 05/29/24 04:08 RBC 4.83 X10^6/uL (4.7-6.0) 05/29/24 04:08 Hgb 15.9 g/dL (13.5-18.0) 05/29/24 04:08 Hct 48.3 % (42.0-54.0) 05/29/24 04:08 MCV 99.9 fL (80.0-100.0) 05/29/24 04:08 MCH 32.9 pg (27.0-34.0) 05/29/24 04:08 MCHC 33.0 g/dL (33.0-35.0) 05/29/24 04:08 RDW 14.9 % (11.6-16.5) 05/29/24 04:08 Plt Count 178 X10^3/uL (150.0-450.0) 05/29/24 04:08 MPV 8.0 fL (7.4-11.0) 05/29/24 04:08 Neut % (Auto) 55.9 % (42.0-75.0) 05/29/24 04:08 Lymph % (Auto) 30.0 % (21.0-51.0) 05/29/24 04:08 [place] % (Auto) 11.7 % (0.0-13.0) 05/29/24 04:08 Eos % (Auto) 1.5 % (0.9-2.9) 05/29/24 04:08 Baso % (Auto) 0.9 % (0.2-1.0) 05/29/24 04:08 Neut # (Auto) 3.5 x10^3/uL (2.2-4.8) 05/29/24 04:08 Lymph # (Auto) 1.9 X10^3/uL (1.3-2.9) 05/29/24 04:08 [place] # (Auto) 0.7 x10^3/uL (0.3-0.8) 05/29/24 04:08 Eos # (Auto) 0.1 x10^3/uL (0.0-0.2) 05/29/24 04:08 Baso # (Auto) 0.1 X10^3/uL (0.0-0.1) 05/29/24 04:08 Absolute Nucleated RBC 0.1 /100WBC 05/29/24 04:08 D-Dimer 0.55 ug/ml (0.0-0.57) 05/26/24 12:08 Sodium 140 mmol/L (136-145) 05/29/24 04:08 Corrected Sodium TNP 05/29/24 04:08 Potassium 4.5 mmol/L (3.5-5.1) 05/29/24 04:08 Chloride 104 mmol/L (98-107) 05/29/24 04:08 Carbon Dioxide 29.0 mmol/L (21-32) 05/29/24 04:08 BUN 17 mg/dL (7-18) 05/29/24 04:08 Creatinine 1.08 mg/dL (0.70-1.30) 05/29/24 04:08 Est GFR (MDRD) Af Amer > 60 (>60) 05/29/24 04:08 Est GFR (MDRD) Non-Af > 60 (>60) 05/29/24 04:08 Glucose 100 mg/dL (65-99) H 05/29/24 04:08 Hemoglobin A1c 5.8 % 05/26/24 12:08 Calcium 8.6 mg/dL (8.5-10.1) 05/29/24 04:08 Corrected Calcium 9.2 mg/dL (8.5-10.1) 05/29/24 04:08 Total Bilirubin 0.50 mg/dL (0.2-1.0) 05/29/24 04:08 AST 21 Units/L (15-37) 05/29/24 04:08 ALT 22 Units/L (12-78) 05/29/24 04:08 Alkaline Phosphatase 144 Units/L (46-116) H 05/29/24 04:08 B-Natriuretic Peptide 118 pg/mL (0-79) H 05/26/24 12:08 Total Protein 6.2 g/dL (6.4-8.2) L 05/29/24 04:08 Albumin 3.3 g/dL (3.4-5.0) L 05/29/24 04:08 Globulin 2.9 g/dL (2.5-4.5) 05/29/24 04:08 Albumin/Globulin Ratio 1.1 Ratio (1.1-2.1) 05/29/24 04:08 Triglycerides 74 mg/dL (0-150) 05/26/24 12:08 Cholesterol 151 mg/dL (0-200) 05/26/24 12:08 LDL Cholesterol, Calc 68 mg/dL (0-100) 05/26/24 12:08 HDL Cholesterol 68 mg/dL (40-60) H 05/26/24 12:08 Cholesterol/HDL Ratio 2.2 (0.0-5.0) 05/26/24 12:08 TSH 3rd Generation 0.865 uIU/mL (0.358-3.74) 05/26/24 12:08 Reason For Visit: ISCHEMIC BILATERAL LOWER EXTREMITIES Discharge Diagnosis All Active Problems (Updated 05/29/24 @ 08:15 by NORAH CARTER MD) Cardiomyopathy (Acute) Atrial fibrillation (Acute) Venous insufficiency (chronic) (peripheral) (Acute) Compression of vein (Acute) Atherosclerosis of [place] arteries of extremities with rest pain, left leg (Acute) Atherosclerosis of [place] arteries of extremities with rest pain, right leg (Acute) PVD (peripheral vascular disease) (Acute) Edema (Acute) Atypical chest pain (Acute) Urinary incontinence (Acute) Rhinosinusitis (Acute) NANCY (generalized anxiety disorder) (Acute) Encounter for monitoring opioid maintenance therapy (Acute) Smoking (Acute) COPD (chronic obstructive pulmonary disease) (Chronic) DDD (degenerative disc disease) (Acute) Hypertension (Chronic) Plan of Treatment: Continue with present treatment and follow up plan. Pt is to keep follow up appointment as instructed and take medications as ordered. Discharge Medications Discharge Medications: naproxen Allergy (Severe, Verified 05/26/24 16:24) RASH Discharge Disposition [facility] Disposition: [facility] Discharge Condition: Stable Discharge Plan Discharge Plan Hospital Course: Mr Short is a 64y/o male with a PMH of chronic pain, anxiety, COPD, HTN presented with worsening LE edema, discoloration and SOB. His symptoms have been present for a few weeks. He denies chest pain. Patient reports having leg pain at rest and with exertion. He was admitted due to concern for LE ischemia. CTA runoff did not show any significant stenosis. Vascular and cardiology were consulted. Patient underwent echocardiogram which did show reduced ejection fraction 35 to 40% with focal wall motion abnormalities. Patient will need a left heart cath for evaluation of multivessel disease. As per vascular, patient likely has venous insufficiency and will need outpatient follow-up. He was transferred to [facility] for heart cath and further management. Patient was stable for transfer. Patient Disposition: [facility] Condition: Stable Health Concerns: Post Hospitalization: new medications and changes needed to prevent readmission or further decline. Pt educated and given instructions on all concerns. Plan of Treatment: Continue with present treatment and follow up plan. Pt is to keep follow up appointment as instructed and take medications as ordered. Prescription drug monitoring program results: PDMP reviewed and no concerns identified Prescriptions: Continued furosemide [Lasix] 20 mg tablet 20 mg PO QDAY PRN (Reason: edema) 30 Days Qty: 30 0RF methocarbamol 750 mg tablet 750 mg PO TID PRN (Reason: muscle pain) 30 Days Qty: 90 2RF albuterol sulfate 1.25 mg/3 mL solution for nebulization 1.25 mg inhalation Q4-6H PRN (Reason: shortness of breath or wheezing) Qty: 90 3RF ipratropium-albuterol 0.5 mg-3 mg(2.5 mg base)/3 mL solution for nebulization 3 ml inhalation Q4-6H PRN (Reason: wheezing) Qty: 90 3RF budesonide-formoterol [Symbicort] 160-4.5 mcg/actuation HFA aerosol inhaler 1 puff inhalation BID Qty: 10.2 0RF Trelegy Ellipta 200-62.5-25 mcg blister with device 1 inh inhalation Q24H Qty: 60 3RF oxycodone-acetaminophen [Percocet] 10-325 mg tablet 1 tab PO TID MDD 3 PRN (Reason: pain) 30 Days Qty: 90 0RF benazepril 10 mg tablet 10 mg PO QDAY Qty: 30 3RF alprazolam [Xanax] 0.5 mg tablet 0.5 mg PO QDAY MDD 1 PRN (Reason: anxiety) 30 Days Qty: 30 0RF Orders to Discharge Patient Discharge Orders: Discharge (Routine); Ordered 05/29/24 Ordered By: Carmen Cartwright Discharge by Transfer to Outside Facility (Routine); Ordered 05/29/24 Ordered By: NORAH CARTER Follow ups/Referrals Follow ups/Referrals: Lennox Alvarado MD [Primary Care Provider] - 1 WEEK
== END 2024-05-29 13:00 | disposition short-term general hospital (02) ==
LOC: MED/SURG
PROVIDERS: ADMIT Family Medicine; ATTEND Family Medicine